=== PATIENT | male | born 1970 | race Two or more races ===

== ENCOUNTER 2021-02-17 19:19 | Emergency (ER) | payer MEDICAID, OTHER ==
[~2021-02-17] VITALS: Ht 177.8 cm; Wt 74.8 kg
--- NOTE | 2021-02-17 20:20 | NUR ---
pbibra complaining of abd pain 5/10, nausea, vomiting started 2-3 hrs ago,pt placed on monitor.
[2021-02-17 22:22] LABS: BILIRUBIN,URINE MODERATE (NEGATIVE); COLOR,URINE DARK YELLOW (YELLOW); LEUKOCYTE ESTERASE ,URINE SMALL (NEGATIVE); NITRITE, URINE NEGATIVE (NEGATIVE); PH,URINE 5.5 (5.0-8.0); PROTEIN,URINE >=300 mg/dl (NEGATIVE); UGLUCOSE NEGATIVE (NEGATIVE)
[2021-02-17] MEDS ORDERED: ONDANSETRON HCL/PF 4 MG/2 ML VIAL IVP ONE (22:30)
[2021-02-17] MEDS ORDERED: IV NS 0.9% 1,000 ML BAG IV ONE (22:30)
[2021-02-17] MEDS ORDERED: PANTOPRAZOLE 40 MG VIAL IV ONE (22:30)
[2021-02-17] MEDS ORDERED: PANTOPRAZOLE 40 MG VIAL ONE (22:37)
[2021-02-17] MEDS ORDERED: ONDANSETRON HCL/PF 4 MG/2 ML VIAL ONE (22:37)
[2021-02-17 22:43] LABS: BASOPHILS % (AUTO) 0.5 % (0.0-2.0); EOSINOPHILS % (AUTO) 0.4 % (0.0-6.0); HEMATOCRIT 45 % (39-51); HEMOGLOBIN 14.7 g/dL (13.5-17.5); LYMPHOCYTES # (AUTO) 1.2 K/uL (0.8-4.8); LYMPHOCYTES % (AUTO) 12.6 % (20.0-44.0); MEAN CORPUSCULAR HGB CONC 33 g/dl (31.0-36.0); MEAN CORPUSCULAR VOLUME 81 fL (80-96); MONOCYTES # (AUTO) 0.5 K/uL (0.1-1.30); MONOCYTES % (AUTO) 5.4 % (2.0-12.0); NEUTROPHILS # (AUTO) 7.7 K/uL (1.8-8.9); NEUTROPHILS % (AUTO) 81.1 % (43.0-81.0); PLATELET COUNT (AUTO) 254 K/uL (150-450); RED BLOOD CELL COUNT(AUTO) 5.48 MIL/uL (4.5-6.0); WHITE BLOOD COUNT (AUTO) 9.5 K/uL (4.3-11.0)
[2021-02-17 22:53] LABS: CALCIUM, SERUM 8.8 mg/dL (8.5-10.1); CREATININE 1.1 mg/dL (0.6-1.3); POTASSIUM 4.3 mmol/L (3.5-5.1)
[2021-02-17 22:59] LABS: ALBUMIN 3.7 g/dL (3.4-5.0); BILIRUBIN,DIRECT 0.1 mg/dL (0.0-0.2); BILIRUBIN,TOTAL 0.2 mg/dL (0.2-1.0); TOTAL PROTEIN, SERUM 8.3 g/dL (6.4-8.2)
[2021-02-17 23:06] LABS: BACTERIA,URINE Few /HPF (None Seen); RBC,URINE 0-2 /HPF (0-2); SQUAMOUS EPITHELIAL CELL,UR Few /HPF (None Seen)
[2021-02-17 23:07] LABS: MUCUS,URINE Moderate /LPF (None Seen)
[2021-02-18] MEDS ORDERED: IBUP-1957 PO (00:49)
[2021-02-18] MEDS ORDERED: CEPH500C2 PO (00:49)
[2021-02-18] MEDS ORDERED: ONDA4TAB5 PO (00:49)
--- NOTE | 2021-02-18 01:29 | NUR ---
Patient discharged to home in stable condition.RX and Written and verbal after care instructions given. Patient verbalizes understanding of instruction.IV removed. Catheter intact and site benign. Pressure and 4x4 applied to site. No bleeding noted.
[2021-02-18 01:30] VITALS: BP 129/74
== END 2021-02-18 01:30 | disposition home or self-care (01) ==
LOC: EDSEX 19:21 → ER 19:21
DX: N39.0 Urinary tract infection, site not specified (principal); F19.10 Other psychoactive substance abuse, uncomplicated; R10.13 Epigastric pain; I10 Essential (primary) hypertension; Z60.2 Problems related to living alone
CPT/HCPCS: 36415; 71045; 74176; 80048; 80076; 80307; 81001; 82140; 83690; 84703; 85025; 87086; 96361; 96374; 96375; 99285; C9113; J2405; J7030

== ENCOUNTER 2021-07-07 19:15 | Emergency (ER) | payer MEDICAID ==
[~2021-07-07] VITALS: Ht 180.3 cm; Wt 83.9 kg
[~2021-07-07 19:15] MED LIST: CEPH500C2 PO; IBUP-1957 PO; ONDA4TAB5 PO
--- NOTE | 2021-07-07 19:49 | NUR ---
BIBSELF C/O L MIDDLE FINGER AND R INNER THIGH. PT AWAKE AND ALERT X4 BREATHING EVEN AND UNLABORED AMBULATORY WITH STEADY GAIT. PT CHANGED INTO GOWN AND ALL V/S WNL.
[2021-07-07] MEDS ORDERED: LIDOCAINE 1% INJ 50 ML MDV IJ ONE (19:55)
[2021-07-07] MEDS ORDERED: LIDOCAINE 1%-EPI 1:100,000 20 ML VIAL TP ONE (20:00)
--- NOTE | 2021-07-07 20:02 | NUR ---
PA AT BEDSIDE FOR I&D
[2021-07-07] MEDS ORDERED: CEPH500T PO (20:17)
[2021-07-07] MEDS ORDERED: SULF1TAB48 PO (20:17)
[2021-07-07] MEDS ORDERED: CEPHALEXIN MONOHYDRATE 500 MG CAPSULE PO ONE ×2 (20:26→20:30)
[2021-07-07] MEDS ORDERED: SULFAMETH/TRIMETH 800/160 MG 1 UDTAB TABLET ONE (20:26)
[2021-07-07] MEDS ORDERED: SULFAMETH/TRIMETH 800/160 MG 1 UDTAB TABLET PO ONE (20:30)
[2021-07-07] MEDS ORDERED: KETOROLAC TROMETHAMINE INJ 30 MG/ML VIAL ONE (20:56)
[2021-07-07 20:58] VITALS: BP 157/98
--- NOTE | 2021-07-07 20:58 | NUR ---
Patient discharged to home in stable condition. Written and verbal after care instructions given. Patient verbalizes understanding of instruction.
[2021-07-07] MEDS ORDERED: KETOROLAC TROMETHAMINE INJ 60 MG/2 ML VIAL IM ONE (21:00)
== END 2021-07-07 20:59 | disposition home or self-care (01) ==
LOC: ER 19:18
DX: L02.511 Cutaneous abscess of right hand (principal); I10 Essential (primary) hypertension; Z60.2 Problems related to living alone; Z79.1 Long term (current) use of non-steroidal anti-inflammatories (NSAID); Z79.899 Other long term (current) drug therapy
CPT/HCPCS: 26010; 96372; 99283; A6403; A6407; J1885; J3490